=== PATIENT | male | born 1995 | race Caucasian/White ===

== ENCOUNTER 2020-07-12 05:17 | Observation (INO) | payer OTHER, SELFPAY ==
[~2020-07-12] VITALS: Ht 188 cm; Wt 80.7 kg
[2020-07-12 16:59] LABS: HEMATOCRIT 44.1 % (42.0-52.0); HEMOGLOBIN 15.2 g/dl (13.5-17.5); MEAN CORPUSCULAR HEMOGLOBIN 30.6 pg (27.0-33.0); MEAN CORPUSCULAR HGB CONC 34.5 g/dl (32.0-36.5); MEAN CORPUSCULAR VOLUME 88.9 fl (80.0-96.0); PLATELET COUNT, AUTOMATED 217 10^3/uL (150-450); RED BLOOD COUNT 4.96 10^6/uL (4.30-6.10); WHITE BLOOD COUNT 8.7 10^3/uL (4.0-10.0)
[2020-07-12] MEDS ORDERED: B-12100021 PO (20:43)
[2020-07-12] MEDS ORDERED: ACETAMINOPHEN TAB 650MG DOSE (2X325MG) PO PRN (21:35)
[2020-07-12] MEDS ORDERED: MOM 30ML SUSPENSION UDC PO PRN (21:35)
[2020-07-12] MEDS ORDERED: MAALOX 30 ML SUSP *UDC PO PRN (21:35)
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
[2020-07-12 23:30] VITALS: BP 145/89
[2020-07-13] VITALS (7 sets, daily range): BP systolic 129–155; BP diastolic 73–86
[2020-07-13] MEDS ORDERED: LORazepam 2 MG TAB PO PRN (02:15)
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
[2020-07-13] MEDS: THIAMINE 100 MG TAB PO SCH ×2 (08:46→21:09)
[2020-07-13] MEDS: MULTIVITAMINS/MINERALS THERAP 1 TAB PO SCH (08:46)
[2020-07-13] MEDS: DOCUSATE SODIUM 100MG CAPSULE PO SCH ×2 (08:46→21:00)
[2020-07-13] MEDS: FOLIC ACID 1 MG TAB PO SCH (08:46)
[2020-07-13] MEDS: ENOXAPARIN 40MG/0.4ML SYRINGE (J1650 PER 10MG) SC SCH (08:46)
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
[2020-07-13 14:58] LABS: ALBUMIN 4.4 GM/DL (3.2-5.2); ALT/SGPT 32 U/L (12-78); BILIRUBIN,TOTAL 0.4 MG/DL (0.2-1.0); BLOOD UREA NITROGEN 11 MG/DL (7-18); CALCIUM LEVEL 9.4 MG/DL (8.5-10.1); CARBON DIOXIDE LEVEL 30 MEQ/L (21-32); CHLORIDE LEVEL 106 MEQ/L (98-107); CREATININE FOR GFR 1.08 MG/DL (0.70-1.30); GLOMERULAR FILTRATION RATE > 60.0 (>60); GLUCOSE, FASTING 133 MG/DL (70-100); POTASSIUM SERUM 3.8 MEQ/L (3.5-5.1); SODIUM LEVEL 140 MEQ/L (136-145); TOTAL PROTEIN 7.4 GM/DL (6.4-8.2)
[2020-07-13 15:06] LABS: VITAMIN B12 LEVEL 1448 PG/ML (247-911)
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
[2020-07-14 02:00] VITALS: BP 140/80
[2020-07-14 06:00] VITALS: BP 140/86
[2020-07-14] MEDS: DOCUSATE SODIUM 100MG CAPSULE PO SCH (09:15)
[2020-07-14] MEDS: FOLIC ACID 1 MG TAB PO SCH (09:15)
[2020-07-14] MEDS: ENOXAPARIN 40MG/0.4ML SYRINGE (J1650 PER 10MG) SC SCH (09:15)
[2020-07-14] MEDS: MULTIVITAMINS/MINERALS THERAP 1 TAB PO SCH (09:15)
[2020-07-14] MEDS: THIAMINE 100 MG TAB PO SCH (09:15)
--- NOTE | 2020-07-14 09:44 | REPVR ---
PROCEDURE INFORMATION: Exam: CT Head Without Contrast Exam date and time: 07/14/2020 9:33 AM Age: 24 years old Clinical indication: Injury or trauma; Fall; Concussion/head injury; Additional info: Fall/ concussion TECHNIQUE: Imaging protocol: Computed tomography of the head without contrast. Radiation optimization: All CT scans at this facility use at least one of these dose optimization techniques: automated exposure control; mA and/or kV adjustment per patient size (includes targeted exams where dose is matched to clinical indication); or iterative reconstruction. COMPARISON: No relevant prior studies available. FINDINGS: Brain: Examination of the brain demonstrates normal structure and attenuation.The cortical casas / white matter interfaces are preserved throughout the brain.No acute infarction, masses or hemorrhage is seen. Cerebral ventricles: The ventricular system is not dilated and is appropriate for the patient's age. Bones/joints: Unremarkable. No acute fracture. Paranasal sinuses: Visualized sinuses are unremarkable. No fluid levels. Mastoid air cells: Visualized mastoid air cells are well aerated. Soft tissues: Unremarkable. IMPRESSION: No acute infarction, masses or hemorrhage is seen. No acute intracranial abnormality is identified. Electronically signed by: Chris Walters On 07/14/2020 09:45:06 AM
[2020-07-14 10:00] VITALS: BP 144/86
[2020-07-14 14:00] VITALS: BP 160/80
== END 2020-07-14 16:54 | disposition home or self-care (01) ==
LOC: M ED 05:17 → M ED INP 05:18 → M MSPAV 23:30
PROVIDERS: ADMIT Family Medicine; ATTEND Internal Medicine
DX: G93.41 Metabolic encephalopathy (principal); F32.9 Major depressive disorder, single episode, unspecified
CPT/HCPCS: 36415; 70450; 73620; 80053; 80307; 82607; 85027; 87798; 96372; 99285; J1650

== ENCOUNTER 2020-07-14 15:01 | Inpatient (IN) | payer OTHER ==
[~2020-07-14] VITALS: Ht 188 cm; Wt 80.2 kg
[~2020-07-14 15:01] MED LIST: B-12100021 PO
[2020-07-14] MEDS ORDERED: ACETAMINOPHEN TAB 650MG DOSE (2X325MG) PO PRN (15:25)
[2020-07-14] MEDS ORDERED: MOM 30ML SUSPENSION UDC PO PRN (15:25)
[2020-07-14] MEDS ORDERED: traZODone 50 MG TAB PO PRN (15:25)
[2020-07-14] MEDS ORDERED: MAALOX 30 ML SUSP *UDC PO PRN (15:25)
[2020-07-14 18:04] VITALS: BP 133/70
[2020-07-14] MEDS: QUEtiapine FUMARATE 50MG TAB PO SCH (21:00)
[2020-07-14] MEDS: LITHIUM CARBONATE 300 MG CAP PO SCH (21:00)
[2020-07-15 06:32] VITALS: BP 138/63
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
[2020-07-15] MEDS: LITHIUM CARBONATE 300 MG CAP PO SCH ×2 (09:00→21:00)
[2020-07-15 16:21] VITALS: BP 124/66
[2020-07-15] MEDS: QUEtiapine FUMARATE 50MG TAB PO SCH (21:00)
[2020-07-16 06:26] VITALS: BP 147/67
[2020-07-16] MEDS: LITHIUM CARBONATE 300 MG CAP PO SCH ×2 (09:00→22:16)
[2020-07-16 16:31] VITALS: BP 120/70
[2020-07-16] MEDS: QUEtiapine FUMARATE 50MG TAB PO SCH (22:17)
[2020-07-17 06:00] VITALS: BP 140/74
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
[2020-07-17] MEDS: LITHIUM CARBONATE 300 MG CAP PO SCH ×2 (09:00→21:00)
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
[2020-07-17 18:54] VITALS: BP 126/60
[2020-07-17] MEDS: QUEtiapine FUMARATE 50MG TAB PO SCH (21:00)
[2020-07-18 07:17] VITALS: BP 133/71
[2020-07-18] MEDS: LITHIUM CARBONATE 300 MG CAP PO SCH ×2 (09:00→21:00)
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
[2020-07-18] MEDS ORDERED: LITH300C PO (14:32)
[2020-07-18] MEDS ORDERED: QUET50TA3 PO (14:32)
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
[2020-07-18 18:08] VITALS: BP 115/60
[2020-07-18] MEDS: QUEtiapine FUMARATE 50MG TAB PO SCH (21:00)
[2020-07-19 06:00] VITALS: BP 122/84
[2020-07-19] MEDS: LITHIUM CARBONATE 300 MG CAP PO SCH (09:00)
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
== END 2020-07-19 14:00 | disposition home or self-care (01) | DRG 750 ==
LOC: M PSY 16:49
PROVIDERS: ADMIT Psychiatry & Neurology Psychiatry; ATTEND Psychiatry & Neurology Psychiatry
DX: F20.9 Schizophrenia, unspecified (principal); Z79.899 Other long term (current) drug therapy